=== PATIENT | female | born 1940 | race Caucasian/White ===

== ENCOUNTER 2016-04-17 08:48 | Outpatient (CLI) ==
[2016-01-05 23:49] VITALS: BMI 23.1
[2016-04-17 08:58] LABS: BILIRUBIN,URINE Negative (NEGATIVE); KETONES,URINE Trace (NEGATIVE); LEUKOCYTE ESTERASE ,URINE Negative (NEGATIVE); NITRITE,URINE Negative (NEGATIVE); PROTEIN,URINE Negative (NEGATIVE); URINE, BLOOD 2+ (NEGATIVE)
[2016-04-17 09:09] LABS: ADD URINE MICROSCOPIC YES
[2016-04-17 09:12] LABS: BACTERIA,URINE 2+ (NOT PRESENT)
== END 2016-04-17 08:49 | disposition home or self-care (01) ==
LOC: NONPT 08:48
PROVIDERS: ATTEND Family Medicine
DX: R30.0 Dysuria (principal); R41.0 Disorientation, unspecified
CPT/HCPCS: 81001; 87086; 87186

== ENCOUNTER 2016-04-28 08:35 | Outpatient (CLI) ==
[2016-01-05 23:49] VITALS: BMI 23.1
[2016-04-28 08:47] LABS: BILIRUBIN,URINE Negative (NEGATIVE); KETONES,URINE Negative (NEGATIVE); LEUKOCYTE ESTERASE ,URINE Negative (NEGATIVE); NITRITE,URINE Positive (NEGATIVE); PROTEIN,URINE Negative (NEGATIVE); URINE, BLOOD 2+ (NEGATIVE)
[2016-04-28 08:48] LABS: ADD URINE MICROSCOPIC YES
[2016-04-28 08:49] LABS: BACTERIA,URINE 4+ (NOT PRESENT)
== END 2016-04-28 08:36 | disposition home or self-care (01) ==
LOC: NONPT 08:35
PROVIDERS: ATTEND Family Medicine
DX: N39.0 Urinary tract infection, site not specified (principal)
CPT/HCPCS: 81001; 87086; 87186

== ENCOUNTER 2016-09-13 15:57 | Outpatient (CLI) ==
[2016-01-05 23:49] VITALS: BMI 23.1
[2016-09-13 16:33] LABS: BILIRUBIN,URINE Negative (NEGATIVE); KETONES,URINE Negative (NEGATIVE); LEUKOCYTE ESTERASE ,URINE 1+ (NEGATIVE); NITRITE,URINE Positive (NEGATIVE); PH,URINE 5.5 (5-9); PROTEIN,URINE Negative (NEGATIVE); URINE, BLOOD Trace-lysed (NEGATIVE)
[2016-09-13 16:51] LABS: ADD URINE MICROSCOPIC YES
[2016-09-13 16:56] LABS: BACTERIA,URINE 2+ (NOT PRESENT)
== END 2016-09-13 15:58 | disposition home or self-care (01) ==
LOC: NONPT 15:57
PROVIDERS: ATTEND Family Medicine
DX: N39.0 Urinary tract infection, site not specified (principal)
CPT/HCPCS: 81001; 87086

== ENCOUNTER 2017-05-09 10:11 | Outpatient (CLI) | payer OTHER ==
[2016-01-05 23:49] VITALS: BMI 23.1
== END 2017-05-09 10:12 | disposition home or self-care (01) ==
LOC: NONPT 10:11
PROVIDERS: ATTEND Emergency Medicine
DX: R05 Cough (principal); R50.9 Fever, unspecified; R68.89 Other general symptoms and signs
CPT/HCPCS: 87502

== ENCOUNTER 2018-11-07 10:41 | Outpatient (CLI) | payer OTHER ==
[2016-01-05 23:49] VITALS: BMI 23.1
== END 2018-11-07 10:42 | disposition home or self-care (01) ==
LOC: NONPT 10:41
PROVIDERS: ATTEND General Practice
DX: Z79.899 Other long term (current) drug therapy (principal)
CPT/HCPCS: 85025